=== PATIENT | male | born 1970 | race Caucasian/White ===

== ENCOUNTER 2019-10-17 10:03 | Emergency (ER) | payer BC ==
[2019-10-17 10:08] VITALS: RESP 18
[2019-10-17 10:22] LABS: Glucose,Whole Blood 110 mg/dL (75-99)
--- NOTE | 2019-10-17 10:27 | ED ---
Neuro HPI - General Chief Complaint: Neuro Symptoms/Deficit Stated Complaint: Poss stroke Time Seen by Provider: 10/17/19 10:15 Source: patient, RN notes reviewed Mode of arrival: wheelchair Limitations: no limitations - History of Present Illness Is the patient presenting with stroke symptoms?: Yes Initial Comments: This a 48-year-old male presents emergency Department with chief complaint of right facial droop, right-sided facial numbness. Patient states that he initially did not notice his symptoms but states that he try to rinse out his mouth and noticed that he was spilling out liquids on the right side of his mouth. Patient states that he schedule an appointment with his PCP in which she saw his PCP yesterday had a CAT scan ordered but due to insurance reasons were unable to obtain this. Patient has no complaints of pain at this time no blurred vision. He states that he has some numbness in his right cheek, right side of his nose. Patient denies any upper or lower extremity weakness. Patient denies chest pain, shortness breath, neck pain, fever or chills. Patient denies history of hypertension, hyperlipidemia diabetes. Patient does admit that he is a smoker and has a history of asthma. - Related Data Home Medications: Home Medications Medication Instructions Recorded Confirmed Aspirin EC [Ecotrin Low Dose] 81 mg PO DAILY 10/17/19 10/17/19 Fluticasone/Vilanterol [Breo 1 puff INHALATION RT-DAILY 10/17/19 10/17/19 Ellipta 100-25 Mcg Inhaler] HYDROcodone/APAP 7.5-325MG [[place] 1 tab PO BID PRN 10/17/19 10/17/19 7.5-325] Ipratropium/Albuterol Sulfate 1 puff INHALATION RT-DAILY PRN 10/17/19 10/17/19 [Combivent Respimat Inhaler] Multivitamins, Thera [Multivitamin 1 tab PO DAILY 10/17/19 10/17/19 (formulary)] Allergies/Adverse Reactions: Allergies Allergy/AdvReac Type Severity Reaction Status Date / Time No Known Allergies Allergy Verified 10/17/19 11:12 Review of Systems ROS Statement: Those systems with pertinent positive or pertinent negative responses have been documented in the HPI. ROS Other: All systems not noted in ROS Statement are negative. General Exam Limitations: no limitations General appearance: alert, in no apparent distress Head exam: Present: atraumatic, normocephalic, normal inspection Eye exam: Present: normal appearance, PERRL, EOMI. Absent: scleral icterus, conjunctival injection, periorbital swelling ENT exam: Present: normal oropharynx, mucous membranes moist, TM's normal bilaterally, normal external ear exam. Absent: normal exam Neck exam: Present: normal inspection, full ROM. Absent: tenderness, meningism us, lymphadenopathy Respiratory exam: Present: normal lung sounds bilaterally. Absent: respiratory distress, wheezes, rales, rhonchi, stridor Cardiovascular Exam: Present: normal rhythm, tachycardia, normal heart sounds. Absent: systolic murmur, diastolic murmur, rubs, gallop, clicks Neurological exam: Present: alert, oriented X3, CN II-XII intact, reflexes normal. Absent: motor sensory deficit Expanded Patient oriented to: Present: person, place, time Speech: Present: fluid speech Cranial nerves: EOM's Intact: Normal, Gag Reflex: Normal, Tongue Deviation: Normal, Nystagmus: Normal, Facial Sensation: Normal, Facial Palsy with Forehead Movement: Abnormal Right Cerebellar function: Finger to Nose: Normal, Heel to Booker: Normal, Romberg: Normal Upper motor neuron: Devonte Neglect: Normal, Pronator Drift: Normal, Sensory Extinction: Normal Sensory exam: Upper Extremity Light Touch: Normal, UE 2 Point Discrimination: Normal, Lower Extremity Light Touch: Normal, LE 2 Point Discrimination: Normal Motor strength exam: RUE: 5, LUE: 5, RLE: 5, LLE: 5 Eye Response: (4) open spontaneously Motor Response: (6) obeys commands Verbal Response: (5) oriented Neftaly Total: 15 Skin exam: Present: warm, dry, intact, normal color. Absent: rash Stroke MDM - Lab Data Result diagrams: 10/17/19 10:21 10/17/19 10:21 Lab Results 10/17/19 10/17/19 10/17/19 Range/Units 10:21 10:21 10:21 WBC 6.6 (3.8-10.6) k/uL RBC 5.05 (4.30-5.90) m/uL Hgb 15.0 (13.0-17.5) gm/dL Hct 44.5 (39.0-53.0) % MCV 88.2 (80.0-100.0) fL MCH 29.7 (25.0-35.0) pg MCHC 33.7 (31.0-37.0) g/dL RDW 12.3 (11.5-15.5) % Plt Count 277 (150-450) k/uL Neutrophils % 66 % Lymphocytes % 23 % Monocytes % 5 % Eosinophils % 4 % Basophils % 0 % Neutrophils # 4.4 (1.3-7.7) k/uL Lymphocytes # 1.5 (1.0-4.8) k/uL Monocytes # 0.3 (0-1.0) k/uL Eosinophils # 0.3 (0-0.7) k/uL Basophils # 0.0 (0-0.2) k/uL PT (9.0-12.0) sec INR (<1.2) APTT (22.0-30.0) sec Sodium 139 (137-145) mmol/L Potassium 4.4 (3.5-5.1) mmol/L Chloride 108 H (98-107) mmol/L Carbon Dioxide 24 (22-30) mmol/L Anion Gap 7 mmol/L BUN 12 (9-20) mg/dL Creatinine 0.80 (0.66-1.25) mg/dL Est GFR (CKD-EPI)AfAm >90 (>60 ml/min/1.73 sqM) Est GFR (CKD-EPI)NonAf >90 (>60 ml/min/1.73 sqM) Glucose 100 H (74-99) mg/dL POC Glucose (mg/dL) 110 H (75-99) mg/dL POC Glu Auction Clerk ID Jimenez Estes Calcium 9.6 (8.4-10.2) mg/dL Total Bilirubin 0.6 (0.2-1.3) mg/dL AST 24 (17-59) U/L ALT 22 (4-49) U/L Alkaline Phosphatase 117 (38-126) U/L Troponin I (0.000-0.034) ng/mL Total Protein 6.7 (6.3-8.2) g/dL Albumin 4.4 (3.5-5.0) g/dL 10/17/19 10/17/19 Range/Units 10:21 10:21 WBC (3.8-10.6) k/uL RBC (4.30-5.90) m/uL Hgb (13.0-17.5) gm/dL Hct (39.0-53.0) % MCV (80.0-100.0) fL MCH (25.0-35.0) pg MCHC (31.0-37.0) g/dL RDW (11.5-15.5) % Plt Count (150-450) k/uL Neutrophils % % Lymphocytes % % Monocytes % % Eosinophils % % Basophils % % Neutrophils # (1.3-7.7) k/uL Lymphocytes # (1.0-4.8) k/uL Monocytes # (0-1.0) k/uL Eosinophils # (0-0.7) k/uL Basophils # (0-0.2) k/uL PT 9.5 (9.0-12.0) sec INR 0.9 (<1.2) APTT 24.2 (22.0-30.0) sec Sodium (137-145) mmol/L Potassium (3.5-5.1) mmol/L Chloride (98-107) mmol/L Carbon Dioxide (22-30) mmol/L Anion Gap mmol/L BUN (9-20) mg/dL Creatinine (0.66-1.25) mg/dL Est GFR (CKD-EPI)AfAm (>60 ml/min/1.73 sqM) Est GFR (CKD-EPI)NonAf (>60 ml/min/1.73 sqM) Glucose (74-99) mg/dL POC Glucose (mg/dL) (75-99) mg/dL POC Glu Auction Clerk ID Calcium (8.4-10.2) mg/dL Total Bilirubin (0.2-1.3) mg/dL AST (17-59) U/L ALT (4-49) U/L Alkaline Phosphatase (38-126) U/L Troponin I <0.012 (0.000-0.034) ng/mL Total Protein (6.3-8.2) g/dL Albumin (3.5-5.0) g/dL - Medical Decision Making 40-year-old male presented for right-sided facial drooping. Patient states his symptoms have been going on for several weeks. Patient's workup at this time is negative for any acute findings. Case discussed with his PCP Dr. Khoury who states symptoms have been going on for several months. Dr. Khoury recommends patient be discharged with follow-up in office for possible MRI, neurology evaluation. 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 Patient was given strict return parameters. - EKG Data -: EKG Interpreted by Me 10/17/19 12:02 EKG performed at 10:24 normal sinus rhythm with a rate of 77 IN 152 QRS 80 QT/QT C 364/[address] elevation or depression Past Medical History Additional Past Medical History / Comment(s): Asthma Past Surgical History: No Surgical Hx Reported Smoking Status: Current some day smoker Past Alcohol Use History: None Reported Past Drug Use History: Marijuana Course Vital Signs 10/17/19 10/17/19 10:04 11:16 Temperature 97.9 F Pulse Rate 111 H 83 Respiratory 18 18 Rate Blood Pressure 167/102 158/99 O2 Sat by Pulse 94 L 97 Oximetry Disposition Clinical Impression: CVA (cerebral vascular accident) Disposition: HOME SELF-CARE Condition: Stable Instructions (If sedation given, give patient instructions): Stroke (DC) Additional Instructions: Please return to the Emergency Department if symptoms worsen or any other concerns. Is patient prescribed a controlled substance at d/c from ED?: No Referrals: Dion Khoury MD [Primary Care Provider] - 1-2 days Time of Disposition: 13:00
[2019-10-17 10:51] LABS: ALT 22 U/L (4-49); AST 24 U/L (17-59); African American GFR (CKD) >90 (>60 ml/min/1.73 sqM); Albumin 4.4 g/dL (3.5-5.0); Alkaline Phosphatase 117 U/L (38-126); Anion Gap 7 mmol/L; Blood Urea Nitrogen 12 mg/dL (9-20); Calcium 9.6 mg/dL (8.4-10.2); Carbon Dioxide 24 mmol/L (22-30); Chloride 108 mmol/L (98-107); Glucose 100 mg/dL (74-99); Non-African American GFR(CKD) >90 (>60 ml/min/1.73 sqM); Potassium 4.4 mmol/L (3.5-5.1); Sodium 139 mmol/L (137-145); Total Bilirubin 0.6 mg/dL (0.2-1.3); Total Protein 6.7 g/dL (6.3-8.2)
[2019-10-17 10:59] LABS: INR 0.9 (<1.2); Partial Thromboplastin Time 24.2 sec (22.0-30.0); Prothrombin Time 9.5 sec (9.0-12.0)
--- NOTE | 2019-10-17 11:15 | CT ---
EXAMINATION TYPE: CT brain wo con DATE OF EXAM: 10/17/2019 COMPARISON: None HISTORY: Neuro deficit CT DLP: 1108.4 mGycm. Automated Exposure Control for Dose Reduction was Utilized. TECHNIQUE: CT scan of the head is performed without contrast. FINDINGS: There is no acute intracranial hemorrhage, mass effect, or midline shift identified. The ventricles and sulci are within normal limits in size. The globes are intact and the visualized sin uses are showing mucoperiosteal thickening in the maxillary sinuses, ethmoid air cells and frontal si nus. White matter low-attenuation is patchy. IMPRESSION: No acute intracranial hemorrhage, mass effect, or midline shift is seen. Chronic sinusit is. Nonspecific white matter demyelination, consider MRI
[2019-10-17 11:21] LABS: Basophils % (A) 0 %; Eosinophils # (A) 0.3 k/uL (0-0.7); Eosinophils % (A) 4 %; HCT 44.5 % (39.0-53.0); Lymphocytes # (A) 1.5 k/uL (1.0-4.8); Lymphocytes % (A) 23 %; MCH 29.7 pg (25.0-35.0); MCHC 33.7 g/dL (31.0-37.0); MCV 88.2 fL (80.0-100.0); Monocytes # (A) 0.3 k/uL (0-1.0); Monocytes % (A) 5 %; Neutrophils # (A) 4.4 k/uL (1.3-7.7); Neutrophils % (A) 66 %; Platelet Count 277 k/uL (150-450); RBC 5.05 m/uL (4.30-5.90); RDW 12.3 % (11.5-15.5); WBC 6.6 k/uL (3.8-10.6)
--- NOTE | 2019-10-17 11:30 | XR ---
EXAMINATION TYPE: XR chest 2V DATE OF EXAM: 10/17/2019 COMPARISON: Prior chest x-ray 07/02/2014 HISTORY: Altered mental status TECHNIQUE: Frontal and lateral views of the chest are obtained. FINDINGS: There is no focal air space opacity, pleural effusion, or pneumothorax seen. The cardiac silhouette size is within normal limits. The osseous structures are intact. There are prominent susan g volume suggesting underlying COPD. There is an metallic post through the region of the right nipple . IMPRESSION: No acute cardiopulmonary process.
[2019-10-17 13:32] VITALS: BP 146/87; PULSE 75; TEMP 98.1
== END 2019-10-17 13:32 | disposition home or self-care (01) ==
LOC: EC 10:03
DX: I63.9 Cerebral infarction, unspecified (principal); J45.909 Unspecified asthma, uncomplicated; F17.200 Nicotine dependence, unspecified, uncomplicated; Z79.51 Long term (current) use of inhaled steroids; Z79.82 Long term (current) use of aspirin
CPT/HCPCS: 36415; 70450; 71046; 80053; 84484; 85025; 85610; 85730; 93005; 99285

== ENCOUNTER → 2019-10-26 | Outpatient (CLI) | payer BC ==
--- NOTE | 2019-10-27 06:38 | MR ---
EXAMINATION TYPE: MR brain wo/w con DATE OF EXAM: 10/26/2019 COMPARISON: CT brain October 17, 2019. HISTORY: Slurred speech/CVA. TECHNIQUE: Multiplanar, multisequence images of the brain and brainstem is performed without and with IV contras t, utilizing 9.5 mL intravenous Gadavist . FINDINGS: Diffusion weighted images demonstrate no evidence of a recent infarct or other diffusion ab normality. There is no worrisome extra-axial fluid collection. Mild ventricular and sulcal prominenc e consistent with mild diffuse age-related cerebral atrophy. There is occasional focus of T2 hyperint ensity scattered throughout the white matter bilaterally. Estimate roughly 5-6 scattered small lesion s, for reference 4 to 5 mm left parietal lesion is noted axial image 19. Midline structures demonstrate normal morphology. The craniocervical junction appears within normal limits. Post contrast images demonstrate no abnormal enhancement. The dural venous sinuses appear pa tent. Persistent mild to moderate mucosal thickening involving anterior ethmoid sinuses and mild muco howie thickening inferior bilateral maxillary sinuses. Globes are intact bilaterally. IMPRESSION: 1. No evidence of a recent infarct. 2. No suspicious enhancement or enhancing masses. 3. Mild diffuse age-related cerebral atrophy and minimal nonspecific white matter changes. 4. Mild chronic paranasal sinus disease redemonstrated.
== END | disposition home or self-care (01) ==
LOC: RADMRIMAIN 16:33
PROVIDERS: ATTEND Family Medicine
DX: G31.1 Senile degeneration of brain, not elsewhere classified (principal); J32.4 Chronic pansinusitis
CPT/HCPCS: 70553; A9585

== ENCOUNTER 2020-04-24 11:30 | Observation (INO) | payer BC ==
[2020-04-24] MEDS ORDERED: IPRATROPIUM-ALBUTEROL 3 ML NEB INHALATION PRN (14:40)
[2020-04-24] MEDS: MULTIVITAMINS, THERA 1 EACH TAB PO SCH (15:15)
[2020-04-24] MEDS: SODIUM CHLORIDE 0.9% 1,000 ML IV SCH (15:28)
[2020-04-24] MEDS: PANTOPRAZOLE 40 MG/10 ML VIAL IVP SCH (15:28)
[2020-04-24 15:41] LABS: ALT 18 U/L (4-49); AST 23 U/L (17-59); African American GFR (CKD) >90 (>60 ml/min/1.73 sqM); Albumin 4.2 g/dL (3.5-5.0); Alkaline Phosphatase 104 U/L (38-126); Anion Gap 6 mmol/L; Blood Urea Nitrogen 14 mg/dL (9-20); Calcium 9.3 mg/dL (8.4-10.2); Carbon Dioxide 25 mmol/L (22-30); Chloride 107 mmol/L (98-107); Glucose 90 mg/dL (74-99); Non-African American GFR(CKD) >90 (>60 ml/min/1.73 sqM); Potassium 4.4 mmol/L (3.5-5.1); Sodium 138 mmol/L (137-145); Total Bilirubin 0.9 mg/dL (0.2-1.3); Total Protein 6.4 g/dL (6.3-8.2)
[2020-04-24 15:47] LABS: Basophils % (A) 0 %; Eosinophils # (A) 0.2 k/uL (0-0.7); Eosinophils % (A) 3 %; HCT 43.8 % (39.0-53.0); HGB 14.3 gm/dL (13.0-17.5); Lymphocytes # (A) 1.4 k/uL (1.0-4.8); Lymphocytes % (A) 17 %; MCH 29.1 pg (25.0-35.0); MCHC 32.6 g/dL (31.0-37.0); MCV 89.5 fL (80.0-100.0); Monocytes # (A) 0.4 k/uL (0-1.0); Monocytes % (A) 5 %; Neutrophils # (A) 5.9 k/uL (1.3-7.7); Neutrophils % (A) 72 %; Platelet Count 288 k/uL (150-450); RDW 12.5 % (11.5-15.5); WBC 8.2 k/uL (3.8-10.6)
--- NOTE | 2020-04-24 16:22 | CT ---
EXAMINATION TYPE: CT brain wo con DATE OF EXAM: 04/24/2020 COMPARISON: 10/17/2019 HISTORY: Worsening symptoms from prior scan. CT DLP: 1173.[address] of the brain was performed. The ventricles, basal cisterns and sulci overlying the cerebral convexities demonstrate a normal appe arance. There is no evidence for intracranial hemorrhage or sulcal effacement. No mass effects are seen. Osseous calvarium is intact. If symptoms persist consider MRI as clinically warranted. IMPRESSION: 1. No acute intracranial process is seen at this time.
[2020-04-24] MEDS: methylPREDNISolone SOD SUCCI 40 MG/ML 1 ML VIAL IV SCH ×2 (17:04→23:59)
--- NOTE | 2020-04-24 18:18 | P.CNNES ---
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 According to the patient he had the extensive workup for his the right upper and lower facial weakness that started in October 2019 oh he had MRI of the brain w hich did not show anything. Per the patient as well as the doctor Rudy, patient was on IV steroids as well as the tapering steroids and that 2 weeks of acyclovir as since his presentation in October. He has been getting physical therapy per the patient he had physical therapy for 3 months then in the last 1- 1/2 months he's been getting TENS unit. He he felt like when he had the TENS unit the his symptoms were worsening and so he stopped that and he is back with physical therapy for the last couple days. Patient stated that for last 2 months he noticed that he has worsening of his right facial weakness he felt like he's unable to raise the eyebrows that much as before or left his mouth. Otherwise he denies any the other weakness any visual disturbance any difficulty swallowing any difficulty getting his words out denies any numbness denies any ringing in the ears and hearing loss. Denies any rash. Also in October he didn't have any the infection according to him. I ordered CT of the head and it was reported as no acute intracranial process seen at this time. I reviewed it and I agree. Upon reviewing the medical record the patient had MRI of the brain on the 10/26/2023 slurred speech and there is a concern for stroke. It was reported as no evidence of recent infarct. As well aspatient enhancement or enhancing masses. Reported as mild diffuse age-related cerebral atrophy and minimal nonspecific white matter changes. Per the patient he had Wilburn's palsy and is as a result he got this MRI of the brain. Review of Systems Review of system: The 12 point system was reviewed and apparent positive and negative per HPI. Past Medical History Past Medical History: Asthma Additional Past Medical History / Comment(s): Asthma, bells palsey, back pain History of Any Multi-Drug Resistant Organisms: None Reported Past Surgical History: No Surgical Hx Reported Smoking Status: Former smoker Past Alcohol Use History: None Reported Past Drug Use History: Marijuana - Past Family History Father Family Medical History: Coronary Artery Disease (CAD) Additional Family Medical History / Comment(s): cabg Medications and Allergies Home Medications Medication Instructions Recorded Confirmed Type Fluticasone/Vilanterol [Breo 1 puff INHALATION RT-DAILY 10/17/19 04/24/20 History Ellipta 100-25 Mcg Inhaler] HYDROcodone/APAP 7.5-325MG [[place] 1 tab PO DAILY@1200 PRN 10/17/19 04/24/20 History 7.5-325] Ipratropium/Albuterol Sulfate 1 puff INHALATION RT-DAILY PRN 10/17/19 04/24/20 History [Combivent Respimat Inhaler] Multivitamins, Thera [Multivitamin 1 tab PO DAILY 10/17/19 04/24/20 History (formulary)] Gabapentin 300 mg PO HS 04/24/20 04/24/20 History Allergies Allergy/AdvReac Type Severity Reaction Status Date / Time No Known Allergies Allergy Verified 04/24/20 12:17 Physical Examination - Vital Signs Vital Signs: Intake and Output 04/24/20 04/24/20 04/24/20 06:59 14:59 22:59 Other: Weight 90.4 kg GENERAL: The patient is lying in bed and is not in acute distress. CHEST: The heart rate is regular rate rhythm. No murmurs to auscultation. No carotid bruit bilaterally. LUNG: Clear to auscultation bilaterally no wheezing noted throughout. Not labored breathing. ABDOMEN/GI: Bowel sounds present in all 4 quadrants. No tenderness to palpation throughout. NEUROLOGICAL: Higher mental function: The patient is awake, alert, oriented to self, place and time. Patient is following commands. No aphasia and no neglect. Cranial nerves: The pupils are round, equal and reactive to light and accommodation. Visual simental are full to confrontation throughout. Extraocular movement is intact no nystagmus is noted. Facial sensation is normal to touch throughout. The facial weakness over entire right face (upper and lower) otherw ise normal on the left. Hearing is normal bilaterally to hand rub. Tongue is midline and moved [id number] without any difficulty. No dysarthria is noted. Shoulder shrug is normal bilaterally. Motor: Gait is normal. The strength is 5 over 5 throughout. Normal tone and bulk. Cerebellum: Normal finger to nose heel to chin bilaterally. Sensation: Sensation is normal to touch throughout. Reflexes (right/left): 2+ bilaterally. Plantars are downgoing bilaterally. Results [place] 23 ALTs of 18. - Laboratory Findings CBC and BMP: 04/24/20 15:18 04/24/20 15:18 Assessment and Plan Assessment: [place] palsy over the right side since October 2019 that he feels it has been w orsening in past 2 month. History of asthma Plan: CT of the head was done and does not show any acute the ischemia. Or any evidence of ischemia for the right facial weakness I will think MRI of the brain is warranted at this time he had an MRI of the brain in October 2019 and the it didn't show any evidence for his the facial weakness with single show anything at this time. This was explained to the patient and he agrees of holding off on the MRI at this time. The patient was started on Solu-Medrol by the primary team. I will order Lyme titer, VZV, HSV 1 and 2 PCR, CMV. I also ordered hemoglobin A1c and vitamin B12. Currently the patient is on gabapentin 300 mg daily at bedtime and multivitamins. Recommend the patient to have right eye patch as well as eyedrops to avoid corneal ulceration. Patient said that that he'll follow up with Dr. Navarrete neurologist as an outpatient upon discharge. I discussed the plan with the patient as well as primary team. Thank you for the consult. Hayder Jefferson M.D. Neuro-hospitalist Time with Patient: Greater than 30
[2020-04-24] MEDS ORDERED: GABAPENTIN 300 MG CAP PO SCH (21:00)
[2020-04-25 00:34] LABS: Hemoglobin A1C 5.1 % (4.0-6.0)
[2020-04-25] MEDS: SODIUM CHLORIDE 0.9% 1,000 ML IV SCH (06:09)
[2020-04-25] MEDS: methylPREDNISolone SOD SUCCI 40 MG/ML 1 ML VIAL IV SCH (07:59)
[2020-04-25] MEDS ORDERED: SYMBICORT 80-4.5 MCG INHALER INHALATION SCH (08:00)
--- NOTE | 2020-04-25 09:08 | XR ---
EXAMINATION TYPE: XR chest 1V portable DATE OF EXAM: 04/25/2020 CLINICAL HISTORY: Concern for sarcoidosis TECHNIQUE: Portable frontal view of the chest obtained COMPARISON: 10/17/2019 chest radiograph FINDINGS: The cardiomediastinal silhouette is within normal limits for size. Pulmonary vasculature i s normal. There is no thickening of the right paratracheal stripe. There is no focal air space opacit y, pleural effusion, or pneumothorax seen. The osseous structures are intact. IMPRESSION: No acute cardiopulmonary process.
[2020-04-25] MEDS: MULTIVITAMINS, THERA 1 EACH TAB PO SCH (09:34)
[2020-04-25] MEDS: PANTOPRAZOLE 40 MG/10 ML VIAL IVP SCH (09:35)
[2020-04-25 09:50] VITALS: BP 150/82; PULSE 104; RESP 19; TEMP 97.6
[2020-04-25] MEDS ORDERED: HYDROcodone/APAP 7.5-325MG 1 EACH TAB PO PRN (12:00)
--- NOTE | 2020-04-25 12:07 | HP ---
HISTORY AND PHYSICAL A 49-year-old white male was seen by Neurology for acute on chronic facial deficit of the right side to rule out CVA, is treated with Wilburn's palsy October of 2019. He has had rapid decrease in this facial strength in the last 2 weeks since he stopped physical therapy. He was admitted to the hospital to rule out stroke. He failed TENS units. Physical therapy states was helping him over the last 2 weeks everything has gotten worse, he is not sure why. Admitted to rule out CVA. CAT scan showed no acute bleeding. MRI of the brain was ordered by neurologist, which is pending. Apparently, patient does not want one or does not want to wait. A 14-point review of systems otherwise negative. Leg strength, arm strength is normal. PAST MEDICAL HISTORY: Asthma, Wilburn's palsy, chronic lumbar disc disease, former smoker. FAMILY HISTORY: Coronary artery disease, CABG. HOME MEDICINES: Breo Ellipta, [place] 7.5 daily, Combivent, Respimat inhaler 2 puffs q.i.d., gabapentin 300 daily, multivitamin daily. ALLERGIES: Negative. 14 POINT REVIEW OF SYSTEMS: Negative except for as mentioned in HPI. PHYSICAL EXAM: CARDIOVASCULAR: S1-S2. LUNGS: Show mild wheezes x4. MUSCULOSKELETAL: Arms and legs, range of motion full x4. Sometimes palpation lumbar spine. PSYCH: Fair mood and affect. NEUROLOGIC: Shows some right facial ptosis of the eye. Facial flaccidity. No arm or leg weakness. Reflexes are normal. ASSESSMENT: Acute neurologic deficit, acute on chronic, suspect Wilburn's palsy relapse. Unsure if he has had a stroke. Neurology consult, carotid ultrasound, MRI of the brain. Please see further orders. Started on steroids for possible treatment for relapsing Wilburn's palsy. IV steroids were kept on overnight. Wait for Neurology recommendations. Patient recommendations. MMODL / IJN: [id number] /
--- NOTE | 2020-04-25 14:32 | P.PN ---
Subjective Progress Note Date: 04/25/20 Upon seeing the patient's the at bedside, he said that he still has this facial weakness over the right side. He denies any new weakness any numbness any visual disturbance. He didn't know that the he's getting get workup done he thought he is coming just for a neurology checkup. He wants to get the workup as an outpatient and will follow-up with his primary care physician as well as the chart see a neurologist as an outpatient Objective - Vital Signs Vital signs: Vital Signs Temp 97.6 F 04/25/20 09:00 Pulse 104 H 04/25/20 09:00 Resp 19 04/25/20 09:00 BP 150/82 04/25/20 09:00 Pulse Ox 96 04/25/20 09:00 Intake & Output 04/24/20 04/25/20 04/25/20 18:59 06:59 18:59 Intake Total 236 236 Balance 236 236 Weight 90.4 kg Intake: Oral 236 236 Other: Voiding Method Toilet Toilet # Voids 2 - Exam GENERAL: The patient is lying in bed and is not in acute distress. CHEST: The heart rate is regular rate rhythm. No murmurs to auscultation. No carotid bruit bilaterally. LUNG: Clear to auscultation bilaterally no wheezing noted throughout. Not labored breathing. ABDOMEN/GI: Bowel sounds present in all 4 quadrants. No tenderness to palpation throughout. NEUROLOGICAL: Higher mental function: The patient is awake, alert, oriented to self, place and time. Patient is following commands. No aphasia and no neglect. Cranial nerves: The pupils are round, equal and reactive to light and accommodation. Visual simental are full to confrontation throughout. Extraocular movement is intact no nystagmus is noted. Facial sensation is normal to touch throughout. The facial weakness over entire right face (upper and lower) otherw ise normal on the left. Hearing is normal bilaterally to hand rub. Tongue is midline and moved [id number] without any difficulty. No dysarthria is noted. Shoulder shrug is normal bilaterally. Motor: Gait is normal. The strength is 5 over 5 throughout. Normal tone and bulk. Cerebellum: Normal finger to nose heel to chin bilaterally. Sensation: Sensation is normal to touch throughout. Reflexes (right/left): 2+ bilaterally. Plantars are downgoing bilaterally. - Labs CBC & Chem 7: 09/03/20 15:18 04/24/20 15:18 Assessment and Plan Assessment: [place] palsy over the right side since October 2019 that he feels it has been worsening in past 2 month. History of asthma Plan: CT of the head was done and does not show any acute the ischemia. Or any evidence of ischemia for the right facial weakness Since the patient is having worsening right facial upper and lower, I wanted to get the MRI after further consideration to rule rule out stroke which is highly unlikely as well as to rule out neurosarcoidosis versus Lyme versus a tumor. Patient declined to get the MRI as an inpatient and he said that he'll get as an outpatient. The patient was started on Solu-Medrol by the primary team. Lyme titer: Negative. CMV: Negative Hemoglobin A1c: 5.1 and vitamin B12: 546. CXR: No acute cardiopulmonary process. Pending VZV, HIV, HSV 1 and 2 PCR. Currently the patient is on gabapentin 300 mg daily at bedtime and multivitamins. Recommend the patient to have right eye patch as well as eyedrops to avoid corneal ulceration. Patient said that that he'll follow up with Dr. Navarrete neurologist as an outpatient upon discharge. The patient wants to be discharge and wanted further workup as an outpatient. I discussed the plan with the patient as well as primary team. Hayder Jefferson M.D. Neuro-hospitalist Time with Patient: Greater than 30
[2020-04-25 19:03] LABS: HIV 2 AB Non-Reactive (Non-Reactive); HIV AB P24 Non-Reactive (Non-Reactive); HIV P24 AG Non-Reactive (Non-Reactive)
[2020-04-28 16:28] LABS: HIV-1 RNA Not detected (Not detected)
[2020-04-30 11:23] LABS: V. zoster Source Blood - EDTA
== END 2020-04-25 12:40 | disposition home or self-care (01) ==
LOC: 1SOBS 11:30
PROVIDERS: ADMIT Family Medicine; ATTEND Family Medicine
DX: G51.0 Bell's palsy (principal); G31.9 Degenerative disease of nervous system, unspecified; J45.909 Unspecified asthma, uncomplicated; M54.9 Dorsalgia, unspecified; Z87.891 Personal history of nicotine dependence; Z82.49 Family history of ischemic heart disease and other diseases of the circulatory system; Z79.51 Long term (current) use of inhaled steroids; Z79.899 Other long term (current) drug therapy
CPT/HCPCS: 96374; 96375; 96376 ×2; 94640; 87535; 87529; 87798; 80053; 82607; 85025; 86618; 86644; 86645; 87390; 83036; 71045; 70450; G0378 ×2; G0379; J2920 ×2; C9113 ×2

== ENCOUNTER → 2020-06-27 | Outpatient (CLI) | payer BC ==
--- NOTE | 2020-06-28 05:09 | MR ---
EXAMINATION TYPE: MR brain and iac wo/w con DATE OF EXAM: 06/27/2020 COMPARISON: 10/26/2019 HISTORY: Worsening right facial palsy CONTRAST: Standard multiplanar, multisequence MRI departmental protocol utilizing 9 mL intravenous Gadavist darius olinium contrast. Ventricles have normal size. There is no mass effect nor midline shift. There is no sign of intracran ial hemorrhage. Diffusion images show no evidence of a cortical infarct. Tapia-white matter structures have fairly normal signal pattern. There are a few scattered white matter high signal foci measuring up to 4 mm in the subcortical white matter of the frontal and parietal lobes. Total number is less t bustos 10. There is a 3 mm focus of increased signal in the left side of the haley. Cerebellum is intact. There i s some mild mucosal thickening in the maxillary and ethmoid sinuses. There is no evidence of retro-or bital mass. The corpus callosum is intact. Additional thin sections through the posterior fossa show normal appearing internal auditory canals. There is normal appearance of the acoustic and vestibular nerves. There is no evidence of cerebellopontine angle mass. The temporal bones appear intact. The co ntrast images show no pathologic enhancement. There is normal enhancement of the venous sinuses. IMPRESSION: Scattered small white matter high signal foci are nonspecific and could relate to some chronic small vessel ischemia. These do not have a pattern typical for demyelinating disease. No evidence of focal posterior fossa abnormality involving the auditory canals. Small high signal focus in the left side of the haley could be focus of chronic small vessel ischemia. Brain overall not significantly different than old exam..
== END | disposition home or self-care (01) ==
LOC: RADMRIMAIN 17:42
PROVIDERS: ATTEND Psychiatry & Neurology Neurology
DX: R90.89 Other abnormal findings on diagnostic imaging of central nervous system (principal); G51.0 Bell's palsy
CPT/HCPCS: 70553; A9585

== ENCOUNTER → 2020-10-07 | Outpatient (CLI) | payer BC ==
[2020-10-07 19:03] LABS: African American GFR (CKD) >90 (>60 ml/min/1.73 sqM); Blood Urea Nitrogen 14 mg/dL (9-20); Non-African American GFR(CKD) >90 (>60 ml/min/1.73 sqM)
--- NOTE | 2020-10-07 20:22 | CT ---
EXAMINATION TYPE: CT brain wo/w con DATE OF EXAM: 10/07/2020 COMPARISON: 04/24/2020 INDICATION: Facial nerve disorder DLP: 2111.4 mGycm, Automated exposure control for dose reduction was used. CONTRAST: 100 mL Isovue-300 CT of the brain is performed utilizing 3 mm thick sections through the posterior fossa and 3 mm thick sections through the remaining calvarium. Study is performed within 24 hours of arrival to the hosp [facility]. No abnormal hyperdensity is present to suggest an acute intracranial hemorrhage. No mass lesion is evident. No acute infarcts are evident. Ventricles and sulci are appropriate for the patient age. Paranasal sinuses and mastoid air cells within the [id number] are clear. At the edge the [id number] is an enhancing irregular lesion at the angle of the right jaw at the e xpected location of the right parotid gland. This measures 2.3 x 1.4 cm. Additional workup with soft tissue CT neck with contrast is recommended. IMPRESSIONS: 1. Normal CT Brain 2. Irregular peripheral enhancing lesion at the right angle of the jaw parotid gland. See CT neck dic tation same date.
--- NOTE | 2020-10-07 20:27 | CT ---
EXAMINATION TYPE: CT soft tissue neck wo/w con DATE OF EXAM: 10/07/2020 COMPARISON: CT brain HISTORY: facial nerve pain and droop CT DLP: 740.2 mGycm CONTRAST: Patient injected with 100 mL of Isovue 300. TECHNIQUE: Axial images at 3 mm thick sections. Reconstructed images in the coronal plane and sagitt al plane are reviewed. FINDINGS: Limited CT sections are obtained the lung apices. The lung apices appear clear. CT neck: The torus tubarius and fossa of Rosenmuller are normal. T[employer] Weaver spaces are normal. Para nasal sinuses and mastoid air cells are clear. Left parotid gland appears normal. Right parotid gland is not well visualized. There is a irregular m ass which on the CT brain images has peripheral enhancement. This is somewhat hypodense centrally. Th is measures 2.4 x 1.7 x 2.5 cm. Submandibular glands, are normal. Small submandibular lymph nodes are present. Parapharyngeal spaces are normal. Scattered small lymph nodes are present. Large lymphadenopathy is not identified. The hypopharynx appears within normal limits. Vocal cord level appear symmetrical. Thyroid as visualized is normal. Osseous structures are normal. IMPRESSIONS: 1. Irregular peripherally enhancing mass at the angle of the jaw location of the right parotid gland. Primary or metastatic neoplasm should be considered. Metastatic lymph node could be considered.
== END | disposition home or self-care (01) ==
LOC: RADCTMAIN 18:11
PROVIDERS: ATTEND Otolaryngology Otology & Neurotology
DX: R22.1 Localized swelling, mass and lump, neck (principal); G51.9 Disorder of facial nerve, unspecified; Z01.812 Encounter for preprocedural laboratory examination
CPT/HCPCS: 82565; 84520; 70492; 70470; 36415; Q9967

== ENCOUNTER 2020-10-22 11:30 | Day surgery (SDC) | payer BC ==
--- NOTE | 2020-10-22 13:41 | US ---
EXAMINATION TYPE: US FNA first lesion, US biopsy parotid gland DATE OF EXAM: 10/22/2020 HISTORY: Right parotid mass. FINDINGS: Maximal barrier technique was utilized. Hand hygiene achieved with soap and water and alco hol-based hand rub. The skin overlying a suitable path to the patient's mass in right parotid gland w as localized with ultrasound and the overlying skin prepped and draped. Ultrasound was utilized with sterile technique. Lidocaine was used for local anesthesia. 25-gauge needle was advanced under ult rasound guidance and aspirated specimen submitted to cytology. A skin bhupinder was made with a scalpel. An 18-gauge needle was advanced under direct ultrasound guidance and core specimen obtained of the ma ss. 2 core specimens obtained. Specimen submitted to Pathology. Following the procedure, hemostasis achieved and the patient is discharged in stable condition without complication. IMPRESSION:STATUS POST ULTRASOUND GUIDED CORE BIOPSY and fine-needle aspiration OF right parotid MASS , PATHOLOGY IS PENDING. THIS PROCEDURE IS PERFORMED BY THE UNDERSIGNED.
[2020-10-22 13:45] VITALS: BP 144/85; PULSE 74; RESP 16; TEMP 97.8
== END 2020-10-22 13:45 | disposition home or self-care (01) ==
LOC: RADPROMAIN 11:30
PROVIDERS: ATTEND Family Medicine
DX: D37.030 Neoplasm of uncertain behavior of the parotid salivary glands (principal)
CPT/HCPCS: 10005; 42400; 76942; 88173; 88305; 88341; 88342

== ENCOUNTER → 2023-08-04 | Outpatient (CLI) | payer BC ==
--- NOTE | 2023-08-08 10:23 | PE ---
EXAMINATION TYPE: PET CT fusion skull to thigh DATE OF EXAM: 08/04/2023 COMPARISON: CT 07/08/2023 Prior PET/CT: 07/14/2021 HISTORY: Neoplasm parotid glands TECHNIQUE: Following the intravenous administration of 12.21 mCi of F-18 FDG, whole body images are performed from the skull base to the midthigh. Images are reviewed on the computer in the coronal, a xial, and sagittal planes. Reconstructed rotating images are created on independent workstation and reviewed on the computer. A localization and attenuation correction CT is performed in conjunction with the PET scan. DLP: 295.89 mGycm SCAN: Subsequent Blood glucose: 99 mg/dL Average Mediastinum SUV: 1.32 Average Liver SUV: 1.88 FINDINGS: Dedicated head and neck imaging: NECK: No suspicious uptake THORAX: No suspicious intrathoracic uptake. ABDOMEN: No abnormal uptake PELVIS: There is a punctate area of uptake along the inner aspect of the right anterior ilium, image 182, SUV 5.3 suspicious for soft tissue uptake OSSEOUS STRUCTURES: There is intense uptake in the T7 and T8 vertebral levels. Some posterior T9 upta ke is present. Extensive uptake is also present within the right sacrum and sacroiliac joint. There i s uptake in the region of the left acetabulum. Some punctate uptake is in the posterior right acetabu lum, SUV 3.02. LOCALIZATION CT: Postsurgical changes are present within the neck greater on the right. Recurrent mas ses are identified in the right frontal region. Metastatic changes within the thoracic spine are evid ent. Lytic areas are present through the sacrum. COMPARISON: Osseous uptake appears to been an interval finding from the prior CT of 07/14/2021. IMPRESSION: 1. 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 2. New osseous metastasis right sacrum, mid sacrum, left acetabulum. 3. No suspicious recurrent changes in the parotid gland regions.
== END | disposition home or self-care (01) ==
LOC: RADPETMAIN 09:53
PROVIDERS: ATTEND Otolaryngology
DX: C07 Malignant neoplasm of parotid gland (principal); C79.51 Secondary malignant neoplasm of bone
CPT/HCPCS: 78815; A9552

== ENCOUNTER → 2023-08-16 | Outpatient (CLI) | payer BC ==
--- NOTE | 2023-08-18 16:11 | MR ---
EXAMINATION TYPE: MR thoracic spine wo/w con DATE OF EXAM: 08/16/2023 COMPARISON: PET CT 08/04/2023 HISTORY: Hx of Parotid Gland CA - current pain in back and tailbone area - PET CT showed an area of interest in tspine and pelvis CONTRAST: Performed utilizing 6.5ml mL intravenous Gadavist gadolinium contrast. TECHNIQUE: Multiplanar, multiecho imaging on a 3.0 Briseida magnet is performed through the thoracic spi ne. Spinal cord maintains normal signal through its visualized course. There is exaggeration of thoracic kyphosis. Severe compression deformity of T7 is present. Superior endplate compression deformity of T8 is prese nt. Signal within these vertebral bodies is diminished on T2-weighted sequences. There is loss of dis c height between T7 and T8. Mild posterior wall displacement appears to be present without spinal can al stenosis. Appears to be some mild enhancement through these regions. Findings can be compatible w ith metastasis. The suspected metastasis at T9 is not evident on the MRI study. There is some increased signal on T2-weighted sequence within the spinal cord T1-T2 through T3-4. Sma ll syrinx should be considered. Disc heights are preserved. Disc hydration levels are preserved. No spinal canal stenosis is evident. IMPRESSION: 1. 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 No spinal canal stenosis is present. 2. 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
== END | disposition home or self-care (01) ==
LOC: RADMRIMAIN 20:00
PROVIDERS: ATTEND Internal Medicine Hematology & Oncology
DX: C79.51 Secondary malignant neoplasm of bone (principal); C07 Malignant neoplasm of parotid gland; M51.24 Other intervertebral disc displacement, thoracic region; G95.89 Other specified diseases of spinal cord
CPT/HCPCS: 72157; A9585

== ENCOUNTER → 2023-08-19 | Outpatient (CLI) | payer BC ==
--- NOTE | 2023-08-19 21:42 | MR ---
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 IV Contrast: 6.5 cc Gadavist FINDINGS: Reproductive: Grossly unremarkable. Bladder: Unremarkable. Bowel: Unremarkable as visualized. Peritoneum: No free fluid identified. Lymph nodes: No evidence of adenopathy. Vasculature: Unremarkable. Musculoskeletal: . * Confirmation of masses within osseous structures. * Left superior acetabulum extension into the cortex measuring 5.0 x 4.4 cm x 4.6 cm with abnormal b one marrow signal surrounding the superior acetabulum. * The right periacetabular osseous structures demonstrate at least 2 areas of abnormal bone marrow s ignal measuring up to 19 mm there is at least 3 lesions identified. * Large mass within the sacrum and crossing the sacroiliac joint into the right iliac bone is presen t. Additional in totality up to 8.9 x 5.8 x 10.4 cm. * Right iliac bone lesion is also present measuring up to 14 mm near the sacroiliac joint. * Heterogenous postcontrast enhancement within these lesions. Abdominal wall/soft tissues: Unremarkable. IMPRESSION: Findings on PET/CT are confirmed with osseous metastatic disease throughout the bony pelvis.
== END | disposition home or self-care (01) ==
LOC: RADMRIMAIN 18:59
PROVIDERS: ATTEND Internal Medicine Hematology & Oncology
DX: C79.51 Secondary malignant neoplasm of bone (principal); C07 Malignant neoplasm of parotid gland
CPT/HCPCS: 72197; A9585

== ENCOUNTER → 2023-09-05 | Outpatient (CLI) | payer BC ==
[2023-09-05 15:21] LABS: INR 0.9 (<1.2); Partial Thromboplastin Time 23.7 sec (22.0-30.0); Prothrombin Time 9.9 sec (10.0-12.5)
[2023-09-05 19:50] LABS: HCT 41.8 % (39.6-50.0); MCH 31.5 pg (27.0-32.0); MCHC 33.5 g/dL (32.0-37.0); MCV 94.1 FL (80.0-97.0); Mean Platelet Volume 9.9 FL (9.5-12.2); NRBC Per 100 WBC 0 X 10*3/uL (0.00-0.01); Platelet Count 257 X 10*3/uL (140-440); RBC 4.44 X 10*6/uL (4.40-5.60); RDW 13.2 % (11.5-14.5); WBC 6.87 X 10*3/uL (4.50-10.00)
[2023-09-05 21:06] LABS: ALT 19 U/L (10-49); AST 71 U/L (14-35); Albumin 4.6 g/dL (3.8-4.9); Albumin/Globulin Ratio 2.19 Ratio (1.60-3.17); Alkaline Phosphatase 255 U/L (41-126); BUN/Creat Ratio 34.29 Ratio (12.00-20.00); Calcium 9.6 mg/dL (8.7-10.3); Carbon Dioxide 25.5 mmol/L (21.6-31.8); Chloride 101 mmol/L (96-109); Globulin 2.1 g/dL (1.6-3.3); Glucose 83 mg/dL (70-110); Potassium 4.8 mmol/L (3.5-5.5); Sodium 139 mmol/L (135-145); Total Bilirubin 0.3 mg/dL (0.3-1.2); Total Protein 6.7 g/dL (6.2-8.2)
== END | disposition home or self-care (01) ==
LOC: LABWHC1 14:44
PROVIDERS: ATTEND Orthopaedic Surgery
DX: C79.51 Secondary malignant neoplasm of bone (principal)
CPT/HCPCS: 36415; 80053; 82306; 85027; 85610; 85730; 86850; 86900; 86901

== ENCOUNTER → 2023-09-07 | Outpatient (CLI) | payer BC | END | disposition home or self-care (01) | LOC: LABPAT 15:31 | PROVIDERS: ATTEND Orthopaedic Surgery | DX: C79.51 Secondary malignant neoplasm of bone (principal) | CPT/HCPCS: 87070 ==

== ENCOUNTER 2023-09-09 10:03 | Day surgery (SDC) | payer BC ==
--- NOTE | 2023-09-09 08:10 | P.HPOR ---
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 I reviewed the patient's clinical syndrome, physical findings, and imaging studies during the appointment today. It is my impression that the patient has a diagnosis of. 1. Lumbar spondylosis 2. Osseous metastasis right sacrum, mid sacrum, and left acetabulum 3. Osseous metastasis T7, T8, T9 4. Right lower extremity radiculopathy PLAN: -I discussed treatment options with the patient, including operative and non- operative options, and they have elected to proceed with the following surgical procedure: Right PSIS biopsy and T7-T8 biopsy The indications, risks, benefits, and alternatives to surgery were discussed with the patient and family at length. Specifically (but not limited to) the risks of infection, stiffness, recurrence of symptoms, need for revision surgery, local numbness, neurovascular injury, and blood clots were discussed. The patient's questions were answered. The decision to proceed was made. Consent will be obtained for the procedure. - Ambulate daily - Take medications as directed - Ice and rest for pain and swelling control. FOLLOW UP:Post Operation HISTORY: Mr. Garcia presents to the office today, 08/31/23, for re-evaluation of his low back pain.He reports experiencing a continued ache-like, throbbing pain throughout the low back that radiates down into the right lower extremity. His right leg pain is associated with intermittent numbness and tingling. He notes an "intense, burning tail bone pain" that has been worsening over the last several weeks. He states his symptoms have worsened over the last 3 to 4 days. The patient notes that his symptoms worsen after all activity. He reports experiencing severe sleep disturbances related to his ongoing pain and associated symptoms. He notes that his current symptoms have started to affect his overall quality of life. He did state today that he has been following with Dr. Osorio. He notes he has previously gone through radiation with a positive result of remission. The patient is currently taking [place] and Advil for relief of his current symptoms. Otherwise patient denies any f/c/sob/cp, perineal numbness or tingling, bowel or bladder incontinence/retention. The patent ambulates independently today. HPI: Mr. Garcia presented to the office on 08/31/23, for an evaluation of his low back pain.Patient describes a constant ache of the lumbar spine that has been progressing over the past month. He states it feels "like a bruise tailbone".In addition to his lumbar pain he reports that it radiates to the bilateral hips and buttock. He reports At the pain radiates into the right lower extremity with intermittent numbness. For his symptoms patient is currently taking [place] and Advil as needed. 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 He has been following with Dr. Osorio. Patient states he did go through radiation with a positive result of remission. Otherwise patient denies any f/c/sob/cp, perineal numbness or tingling, bowel or bladder incontinence/retention. Patient is ambulatory independently. The patients' past social, medical, family, surgical history, as well as review of systems, have been reviewed. Please refer to the Neurosurgery History and Physical form that has been scanned into our electronic medical record system. 16 points review of systems completed and as stated in HPI, all other systems reviewed are negative. PAST TREATMENTS: PT: Yes Did it help? somewhat helpful Home Exercise: Yes Medications: Yes List: [place] and Advil Alternative Interventions: Chiropractic: No Massage therapy: No R.I.C.E: Yes Brace: No Social History: Reviewed, see appropriate section of the chart for details. P3 Family History: Reviewed, see appropriate section of the chart for details. P2 Past Medical History: Reviewed, see appropriate section of the chart for details. [id number] Medications: Rx: AdviL 200 mg tablet Ref: 0 Rx: Breo Ellipta 50 mcg-25 mcg/dose powder for inhalation Ref: 0 Rx: HYDROcodone 5 mg-acetaminophen 325 mg tablet Ref: 0 RADIOGRAPHS: No new x-rays completed in office today. Please see previous note. MRI shows areas of Bright on T2 and Dark on T1 with Enhancement on contrasted films of T7 T8 vertebral bodies with near complete collapse of the T7 body into the T8 body suspicious for metestatic disease. No other areas of the spine showing fracture or spread at this time. MRI of the Pelvis also shows right mahsa pelvis PSIS, SIJ and sacral area to have enhancing lesion within the bone in this area and is ill defined suspicious for metestatic process. biopsy will r/o mets vs primary tumor PHYSICAL EXAM: General: AOX3, NAD, Well hydrate, Well nourished HEENT: No lumps or masses Extremities: No color changes, no pooling Hairy Patches: ABSENT Dorsal Skin Dimples: Normal [employer] spots: ABSENT Surgical Incisions: Muscle Appearance: Well formed, no atrophy Palpation: Midline: NO Paracervical: NO Parathoracic: NO Paralumbar: NO SIJ Testing: Yes TTP: No [place] Finger: No FABER4: No Compression: No Distraction: No Thigh thrust: No Hip thrust: No Postural Balance: Coronal: BALANCED Sagittal: BALANCED Shoulder height: LEVEL Pelvic Girdle: LEVEL ROM and Appearance: Neck: UNRESTRICTED Lumbar: RESTRICTED Shoulders: Symmetrical Hips: Symmetrical Knees: Symmetrical Hands: Symmetrical Feet: Symmetrical VASCULAR STATUS: RUE- 2 LUE-2 RLE-2 LLE-2 Edema: NONE NEUROLOGICAL EXAMINATION: Mental Status: Awake, alert, oriented fully with normal attention, concentration and memory. Fluent appropriate speech. CRANIAL NERVES: I: Olfactory not tested. II: Visual acuity normal, no visual field deficit noted with confrontation. III,IV: Normal pupillary reflexes & intact extraocular movements without nystagmus. V,: Intact symmetrical facial sensation. VII: Intact symmetrical facial motor movementVIII: Hearing intact. IX,X: Intact gag, swallow, & normal voice. XI: Sternocleidomastoid, trapezius function intact. XII: Tongue midline with normal movements. TENSIONING: SLR-NEG Lhermittes- NEG Spurling's Sign- NEG Cubital Percussion- NEG Tinels at wrist- NEG MOTOR EXAM (0-5/5, NT) Muscle appearance:Symmetrical, without signs of atrophy or dystrophy UPPER EXTREMITY Globally 4+/5 all major muscle groups due to disease, no focal deficits -Hand and finger dexterity intact bilaterally? YES -Dysdiadochokinesia examination negative bilaterally? YES LOWER EXTREMITY Globally 4+/5 all major muscle groups due to disease, no focal deficits - Toe heel walk / heel-toe walk intact while maintaining satisfactory balance? yes - Squatting/straightening w/o assistance to a min of 60 degree knee flexion? yes - Single leg stance: intact - Trendelenburg sign: negative bilaterally REFLEXES (0-4/2, NT): RUE-2LUE-2 RLE-2 LLE-2 PATHOLOGICAL REFLEXES: Hoffmans: ABSENT BL Clonus: ABSENT BL Babinski: NEG BL Rectal Tone: INTACT SENSATION (0-4, NT): RUE-2LUE-2 RLE-2 LLE-2 Dermatomal deficit: GAIT AND FUNCTIONAL EVALUATION: Ambulatory aids- INDEPENDENT Rombergs test- NEG toe/heel walk- INTACT Squatting to a min of 60 deg and back- ABLE Single leg stance- ABLE Hand to finger (nose)- ABLE, smooth Spine Surgery Risk Review Mr. Garcia is presenting for evaluation of low back and right lower extremity cummings, right lower extremity numbness and tingling. It was my pleasure to have seen and examined Mr. Garcia. In our visit today we have had a chance to go over subjective complaints, physical examination findings and treatments including the natural course history without intervention and various interventional options. The patients imaging demonstrates: XRayLumbar Multiview (AP, Lateral, Flexion, Extension) with AP pelvis; [facility] - Re-reviewed with the patient today. Moderate spondylitic and degenerative changes with preserved alignment. Multilevel diminished disc height. Vertebral body heights are preserved. no acute osseous every modalities. AP Pelvis: The visualized sacrum and iliac wings are within normal limits. [facility]: - Re-reviewed with the patient today. IMPRESSION: 1. 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 No spinal canal stenosis is present. 2. 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 [facility] of Pelvis: - Re-reviewed with the patient today. IMPRESSION: Findings on PET/CT are confirmed with osseous metastatic disease throughout the bony pelvis. On physical exam, Mr. Garcia demonstrates: A continued ache-like, throbbing pain throughout the low back that radiates down into the right lower extremity. His right leg pain is associated with intermittent numbness and tingling. He notes an "intense, burning tail bone pain" that has been worsening over the last several weeks. He states his symptoms have worsened over the last 3 to 4 days. The patient notes that his symptoms worsen after all activity. He reports experiencing severe sleep disturbances related to his ongoing pain and associated symptoms. He notes that his current symptoms have started to affect his overall quality of life. I have explained to the patient that as their condition progresses it will cause further neurological deficits and eventual paralysis. Based on the patients imaging, physical exam, and the rapid progression and disabling nature of their symptoms, at this time I recommend surgery in the form of a: Right PSIS biopsy and T7-T8 biopsy. I discussed the risk and benefits of this procedure at length with Mr. Garcia. The patient agreed to considered pursuing the procedure above mentioned. Questions were invited and answered, and the patient wishes to proceed as outlined below. Currently, I am recommendin.Right PSIS biopsy and T7-T8 biopsy 2.Review of surgical risks and benefits as well as an educational packet on the proposed surgical procedure. Risks: All surgical procedures come with inherent risks, including those related to positioning, anesthesia, intraoperative findings, and postoperative complications. It is important to understand that surgery does not come with any guarantee of a successful outcome as complications and adverse events are always possible. The patient was given a handout in office today discussing the surgical procedure and risks associated with the intervention, both of which were discussed with the patient. These risks include but are not limited to the following: * Experiencing same, different or even worse symptoms in back, neck, arms, or legs compared to before surgery. Requiring further surgery or other forms of treatment presently or at some time in the future at same or other levels of the intended spine surgery. On an extreme but fortunately relatively rare basis severe complication such as blindness, stroke, heart attack, temporary and/or permanent nerve injury, paralysis, coma, or may occur, sometimes without known explanation. Surgical complications may include but are not limited to risk of infection, fluid accumulation in the surgical dissection site, including a seroma or hematoma, that requires additional surgery, wound drainage, bleeding, new numbness or weakness, vision changes/loss, spinal fluid leakage, non-healing and/or infected incision, headaches, difficulty or inability to swallow, hoarseness, hemopneumothorax, pneumothorax, impotence, retrograde ejaculation, vaginal dryness; injury to nerves, spinal cord, blood vessels, lymphatics or other vital organs (i.e., bowel injury, injury to the great vessels); heterotopic bone formation; complications related to the hardware such as screws, rods, cages including misplaced hardware, device failure, instrumentation at the wrong spine level, hardware fracture/breakage, or hardware loosening; vertebral failure of the spinal column above or below the newly placed hardware; retained surgical instrumentations or devices and the need for further surgery. * Medical risks of the planned spine surgery include but are not limited to generalized Infections to the whole body or local areas outside of the surgical site (sepsis), heart attack, bleeding, anaphylaxis, meningitis, seizure, epilepsy, hearing loss, burn buckley, laceration of the head or other areas of the body, bruising, hypersensitivity of the skin, bladder over distension; allergic reaction; shoulder injury related to positioning; fat, blood and air clots to other areas of the body like heart, lungs, brain; failure of internal organs such as lungs, kidneys, liver and excessive blee ding. If blood transfusions are necessary, note that transfusions may cause intolerance reactions such as anaphylaxis or other complex reactions. Despite best efforts, the results of spine surgery might not heal in terms of bone, soft tissues such as skin, fascia, ligaments, and joints. Additionally, in order to achieve best possible results, spine surgery may be carried out beyond the initially planned levels and involve decompression, fusion including insertion of hardware at levels other than the original intended area of surgical interest change some portions of the procedure in order to ensure the best possible outcomes. With spine surgery and spinal fusion, there are different off label uses of instrumentation (devices, implants and hardware) as well as biological substances (bone morphogenic proteins, demineralized bone matrix) as well as using extra bone from allograft sources (i.e. cadaver bone) or autograft (iliac crest bone, ribs, or the spine itself). The patient has been given information about these practices and their inherent risks and benefits. [facility] is an educational center that serves as a training facility for neurosurgical and orthopedic GENERAL OFFICE CLERK and Nursing students. Physician assistants are medically trained surgical providers who function in the outpatient, inpatient, and operating room setting under the direct supervision of the attending surgeon. [facility] has multiple operating rooms with single and overlapping rooms running daily. They currently function under the required guidelines as produced by the [facility] Finance Committee with regards to the overlapping rooms and will continue to comply with changes to this policy as they occur. The requirements include and are complied with as follows: (1) the critical portions of the overlapping rooms will not occur at the same time, (2) the attending physician will be physically present during the critical portions of the procedure and immediately available during the entire case, and (3) a back-up attending is designated should the primary attending not be immediately available. The patient has had a chance to review all the listed information, has been given print outs detailing this information, and has had all his/her questions answered to their satisfaction. It was my pleasure to have seen and examined Mr. Garcia. In our visit today we have had a chance to go over my understanding of our patient's current condition, the natural course history without intervention and various interventional options. Questions were invited and answered, and the patient wishes to proceed as outlined above. I have seen and examined the patient for 25 minutes and we have spent more than 50% of the time in repeat and detailed counseling about the patient's condition, its natural course history with out and as much as can be predicted with surgery and re-review of various surgical treatment options. In conclusion, Mr. Garcia requested we proceed with the above suggested surgery and are willing to accept risks and limitations of the suggested surgery as nature of the disease process and our best attempts at treatment for the condition. Thank you again for allowing us to be part of your patient's care. Please don't hesitate to contact me if you have any further questions. PATIENT EDUCATION: Medications Reviewed: YES In our visit today Mr. Garcia and I have had a chance to go over my understanding of the patient's current condition, the natural course history without intervention and various interventional options. Questions were invited and answered, and the patient wishes to proceed as outlined above. I will be sure to keep you updated after Mr. Garcia returns here for further follow-up. Thank you again for your referral. Please do not hesitate to contact me if you have any further questions. Signed and authenticated by: Inocente Verdugo [facility] [address] [facility], [address] [address] This message is confidential, intended only for the named recipient(s) and may contain information that is privileged or exempt from disclosure under applicable law. If you are not the intended recipient(s), you are notified that the dissemination, distribution or copying of this information is strictly prohibited. If you received this message in error, please notify the sender then delete this message. 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 , hearing is "ok" on left History of Any Multi-Drug Resistant Organisms: None Reported Past Surgical History: No Surgical Hx Reported Additional Past Surgical History / Comment(s): facical surgery for cancer, leg surgery, BAJA implant on right side Past Anesthesia/Blood Transfusion Reactions: No Reported Reaction Smoking Status: Former smoker - Past Family History Father Family Medical History: Coronary Artery Disease (CAD) Additional Family Medical History / Comment(s): cabg Medications and Allergies Home Medications Medication Instructions Recorded Confirmed Type Fluticasone/Vilanterol [Breo 1 puff INHALATION RT-DAILY 10/17/19 09/06/23 History Ellipta 100-25 Mcg Inhaler] HYDROcodone/APAP 7.5-325MG [[place] 1 tab PO DAILY@1200 PRN 10/17/19 09/06/23 History 7.5-325] Ipratropium/Albuterol Sulfate 1 puff INHALATION RT-DAILY PRN 10/17/19 09/06/23 History [Combivent Respimat Inhaler] Multivitamins, Thera [Multivitamin 1 tab PO DAILY 10/17/19 09/06/23 History (formulary)] Gabapentin 300 mg PO HS 04/24/20 09/06/23 History Gabapentin [Neurontin] 100 mg PO QAM 10/22/20 09/06/23 History Allergies Allergy/AdvReac Type Severity Reaction Status Date / Time No Known Allergies Allergy Verified 09/06/23 11:41 Physical Examination Osteopathic Statement: *. No significant issues noted on an osteopathic structural exam other than those noted in the History and Physical/Consult.
[~2023-09-09 10:03] MED LIST: ACETAMINOPHEN TAB 500 MG TAB PO PRN; GABAPENTIN 300 MG CAP PO PRN; HYDROmorphone 0.5 MG/0.5 ML SYRINGE IVP PRN; LACTATED RINGERS 1,000 ML IV SCH; LIDOCAINE 1% (10MG/ML) FOR IV START INTRADERMA PRN; ONDANSETRON 4 MG/2 ML VIAL IVP PRN; TRANEXAMIC 1,000 MG/100ML-NACL 1,000 MG in SALINE 1 100ML.BAG IVPB PRN
[2023-09-09] MEDS ORDERED: LACTATED RINGERS 1,000 ML IV ONE (10:26)
[2023-09-09] MEDS ORDERED: LIDOCAINE 2% (PF) 20 MG/ML 5 ML VIAL ONE (10:51)
[2023-09-09] MEDS: LIDOCAINE 4% (PF) 5 ML AMP IH SCH ×2 (10:57→11:16)
[2023-09-09] MEDS ORDERED: PROPOFOL 10 MG/ML 20 ML VIAL IV ONE (12:03)
[2023-09-09] MEDS ORDERED: MIDAZOLAM 2 MG/2 ML VIAL ONE (12:03)
[2023-09-09] MEDS ORDERED: GLYCOPYRROLATE 0.2 MG/ML 2 ML VIAL ONE (12:03)
[2023-09-09] MEDS ORDERED: KETAMINE HCL IN 0.9 % NACL 50 MG/5 ML SYRINGE ONE (12:03)
[2023-09-09] MEDS ORDERED: TRANEXAMIC 1,000 MG/100ML-NACL PREMIX BAG ONE (12:03)
[2023-09-09] MEDS ORDERED: LIDOCAINE 0.5%-EPI 1:200,000 50 ML VIAL SQ ONE ×2 (13:01→13:10)
--- NOTE | 2023-09-09 13:27 | P.OP ---
Date of Procedure: 09/09/23 Preoperative Diagnosis: Current Active Problems Lesion of pelvic bone (Acute) Pathological fracture of thoracic vertebra (Acute) Lesion of thoracic vertebra (Acute) Postoperative Diagnosis: Current Active Problems Lesion of pelvic bone (Acute) Pathological fracture of thoracic vertebra (Acute) Lesion of thoracic vertebra (Acute) Procedure(s) Performed: BIOPSY OF T7 LESION USING FLOUROSCOPIC GUIDANCE BIOPSY OF RIGHT ILLIUM/PSIS/SACRUM USING FLOUROSCOPIC GUIDANCE Implants: NONE Anesthesia: MIKEA Surgeon: Inocente Rose Estimated Blood Loss (ml): 5 IV fluids (ml): 500 Urine output (ml): 0 Pathology: other (1. T7 VERTEBRAL BODY; 2. RIGHT PSIS, ILLIUM/SACRUM) Condition: stable Disposition: PACU Indications for Procedure: Mr. Garcia is presenting for evaluation of low back and right lower extremity cummings, right lower extremity numbness and tingling. It was my pleasure to have seen and examined Mr. Garcia. In our visit today we have had a chance to go over subjective complaints, physical examination findings and treatments including the natural course history without intervention and various interventional options. The patients imaging demonstrates: XRayLumbar Multiview (AP, Lateral, Flexion, Extension) with AP pelvis; [facility] - Re-reviewed with the patient today. Moderate spondylitic and degenerative changes with preserved alignment. Multilevel diminished disc height. Vertebral body heights are preserved. no acute osseous every modalities. AP Pelvis: The visualized sacrum and iliac wings are within normal limits. [facility] Thor[facility]Spine: - Re-reviewed with the patient today. IMPRESSION: 1. 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 No spinal canal stenosis is present. 2. 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 [facility] from08[facility]16/23 of Pelvis: - Re-reviewed with the patient today. IMPRESSION: Findings on PET/CT are confirmed with osseous metastatic disease throughout the bony pelvis. On physical exam, Mr. Garcia demonstrates: A continued ache-like, throbbing pain throughout the low back that radiates down into the right lower extremity. His right leg pain is associated with intermittent numbness and tingling. He notes an "intense, burning tail bone pain" that has been worsening over the last several weeks. He states his symptoms have worsened over the last 3 to 4 days. The patient notes that his symptoms worsen after all activity. He reports experiencing severe sleep disturbances related to his ongoing pain and associated symptoms. He notes that his current symptoms have started to affect his overall quality of life. I have explained to the patient that as their condition progresses it will cause further neurological deficits and eventual paralysis. Based on the patients imaging, physical exam, and the rapid progression and disabling nature of their symptoms, at this time I recommend surgery in the form of a: Right PSIS biopsy and T7-T8 biopsy. I discussed the risk and benefits of this procedure at length with Mr. Garcia. The patient agreed to considered pursuing the procedure above mentioned. Questions were invited and answered, and the patient wishes to proceed as outlined below. Currently, I am recommendin.Right PSIS biopsy and T7-T8 biopsy Description of Procedure: The patient was seen and examined in the preoperative area. All preoperative protocols were followed. Informed consent was obtained risks and benefits of the procedure were discussed at length. Risks including bleeding infection damage to the surrounding tissue and risk of reoperation were discussed with the patient. Risk of anesthesia up to and including was a discussed with the patient. These are outlined in the risk review. They were willing to accept these risks and all of the risks of surgery. The patient was given a weight- based dose of antibiotics in the form of 2 g Ancef. The patient was seen and evaluated by the anesthesia team who deemed them fit for surgery. The site was marked, the patient was willing to proceed with the procedure. The patient was transferred to the operative suite by the Department of anesthesia. They were then drifted off to sleep by the department anesthesia and GETA was performed. The patient tolerated this well. Once confirmation of lines and ventilation the patient was transferred to a [prone Tyler table very carefully]. All bony prominences including wrists, elbows, axilla, chest, hips, and thighs, and feet were padded very well. Special attention was paid to the genitalia and these were padded accordingly. SCDs were placed on bilateral lower extremities and were connected. Arms were well padded and placed tucked at his side thumbs down and well-padded. Once in position, again we confirmed good ventilation capabilities and that lines were running appropriately. The patient's thoracic and pelvic regions of the spine was then exposed. 1010s were placed outlining the incision site. Standard alcohol was used to clean the incision site and allowed to dry. C-arm was used to biomark the patient and confirm level for incision which was marked with a skin marker. Operative briefing was performed with all teams and everyone in agreement to proceed. The patient was then prepped and draped in a normal sterile fashion. Timeout was then performed and all parties were in agreement with the procedure to be performed. Skin neck was made over the left side of the T7 region localization with bilateral biplanar fluoroscopy was done the pedicle was accessed as well as vertebral body using the Jamshidi biopsy needle. Jamshidi was passed in the midportion body. Curet and biopsy were then passed through this and samples taken. Meticulous hemostasis was performed the Jamshidi was removed and the area cleaned and a stitch placed in the skin. Attention is then drawn to the PSIS on the right-hand side separate instruments were then used a new Jamshidi needle for biopsy was then passed after skin neck over the PSIS and the right- hand side biplanar fluoroscopy used to localize the PSIS PSIS was accessed with the Jamshidi needle biopsy needle and curet were used to take samples. Good samples were obtained meticulous hemostasis was performed Jamshidi was removed without incident. Wound was then cleaned and a stitch placed in the skin. Local was placed remote to the incision for pain control. The wounds were cleaned and dressed with glue allowed to dry and then Band-Aids. The patient was transferred back to their hospital bed atraumatically. Patient was then awakened and extubated by the department of anesthesia having tolerated the procedure very well with no complications. They were transferred to the postoperative care unit in stable condition.
[2023-09-09 13:45] VITALS: TEMP 97.2
--- NOTE | 2023-09-09 14:00 | XR ---
EXAMINATION TYPE: XR lumbar spine 2 or 3V, FL guidance operating room DATE OF EXAM: 09/09/2023 CLINICAL HISTORY: Low back pain TECHNIQUE: Fluoroscopy. Intraoperative 2 views lumbar spine. COMPARISON: Prior lumbar spine x-ray August 29, 2023. FINDINGS: Fluoroscopic guidance was provided during lumbar discectomy procedure performed by Dr. Travis reina. A total of 43.8 seconds of fluoroscopic time was utilized during the procedure and 18 spot images was acquired. Intraoperative images obtained show surgical change in the thoracic spine and in the sacrum. IMPRESSION: As Above. TOTAL DAP = 4.1125 Gy x cm2.
[2023-09-09 14:34] VITALS: RESP 14
[2023-09-09 14:58] VITALS: BP 132/87; PULSE 103
== END 2023-09-09 15:03 | disposition home or self-care (01) ==
LOC: OR 10:03
PROVIDERS: ATTEND Orthopaedic Surgery
DX: S24.119A Complete lesion at unspecified level of thoracic spinal cord, initial encounter (principal); M84.48XA Pathological fracture, other site, initial encounter for fracture; M99.85 Other biomechanical lesions of pelvic region; C79.51 Secondary malignant neoplasm of bone; F12.90 Cannabis use, unspecified, uncomplicated; J44.9 Chronic obstructive pulmonary disease, unspecified; Z79.51 Long term (current) use of inhaled steroids; Z79.899 Other long term (current) drug therapy; Z87.891 Personal history of nicotine dependence; Z82.49 Family history of ischemic heart disease and other diseases of the circulatory system; Z85.89 Personal history of malignant neoplasm of other organs and systems; Z98.890 Other specified postprocedural states; Z85.818 Personal history of malignant neoplasm of other sites of lip, oral cavity, and pharynx; M47.896 Other spondylosis, lumbar region
CPT/HCPCS: 20220; 94640 ×2; 88342; 88307; 88311; 88341; 72100; J2001; J2250; J0690; J2405; J2704